=== PATIENT | female | born 2000 | race Caucasian/White ===

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

== ENCOUNTER → 2022-01-22 | Outpatient (CLI) | payer OTHER ==
[2022-01-22 16:34] LABS: HEMOGLOBIN 12.1 gm/dl (12.3-15.3); RED BLOOD COUNT 4.05 M/UL (4.00-5.10); WHITE BLOOD COUNT 10.3 K/UL (4.5-11.0)
[2022-01-22 16:54] LABS: BUN/CREATININE RATIO 39 (0-10)
== END ==
LOC: LAB 15:56
PROVIDERS: Psychiatry & Neurology Neurology with Special Qualifications in Child Neurology
DX: G40.814 Lennox-Gastaut syndrome, intractable, without status epilepticus (principal)
CPT/HCPCS: 36415; 80053; 84100; 85025; G0480

== ENCOUNTER 2022-05-05 17:24 | Emergency (ER) | payer OTHER | END 2022-05-05 20:20 | disposition home or self-care (01) | LOC: ER1 17:24 | DX: Z53.21 Procedure and treatment not carried out due to patient leaving prior to being seen by health care provider (principal) ==